=== PATIENT | male | born 1950 | race Caucasian/White ===

== ENCOUNTER → 2020-03-15 14:08 | Outpatient (CLI) | payer MEDICARE, OTHER, SELFPAY ==
[2020-03-16 23:05] LABS: COVID19 Sendout Not Detected (Not Detect)
== END ==
PROVIDERS: Family Provider Internal Medicine; Visit Provider Physician Assistant
DX: Z01.812 Encounter for preprocedural laboratory examination (principal)
CPT/HCPCS: 87635

== ENCOUNTER → 2020-03-18 07:46 | Outpatient (CLI) | payer MEDICARE, BC, SELFPAY ==
--- NOTE | 2020-03-18 | DI.NM.S_ITS ---
PROCEDURE: NM KIARA PERF SPECT R&S PHARM Rest and pharmacological stress myocardial perfusion SPECT with gated imaging and ejection fraction RADIOPHARMACEUTICAL: 12.1 mCi Tc-99m tetrafosmin IV at rest and 26.0 mCi Tc-99m tetrafosmin IV at peak effect of pharmacological stress. [id number] was performed. INDICATIONS: Atherosclerotic heart disease Cardiac murmur TECHNIQUE: Radiopharmaceutical was injected at peak stress test, and also at rest. SPECT images were obtained. SPECT myocardial perfusion images were displayed in short axis, horizontal long axis, and vertical long axis views. Gated images were reviewed using [employer] software. COMPARISON: None. CARDIAC STRESS: A pharmacologic stress test was performed under the supervision of an attending staff, using an infusion of lexiscan 0.4mg IV X1. Hemodynamic data: There is normal blood pressure and heart rate response to pharmacologic stress. Symptoms: The patient denied anginal chest pain. Aminophylline: none EKG: Resting ECG shows sinus rhythm with mild downsloping ST depressions at rest. No significant ST changes with lexiscan. FINDINGS: Raw data: There is good myocardial uptake of radiotracer. No significant motion artifacts. Ojym-lt-yuesp ratio is 0.35 (normal is less than 0.38 for tetrafosmin tracer). Left ventricle function: Gated images demonstrate hypokinesis of the inferolateral wall and lateral wall. No transient ischemic dilation; TID is 1.01 (normal less than 1.3). Left ventricle resting end diastolic volume is 183 mL. Left ventricle stress ejection fraction is 51%; normal range is above 45%. Myocardial perfusion: There is a severe fixed inferolateral wall defect extending to the lateral apex consistent with prior transmural infarct with no ischemia. There is also a mildly intense fixed defect in the inferior wall that is consistent with prior non-transmural infarction with no tunde-infarct ischemia. IMPRESSION: Abnormal nuclear stress test consistent with prior infarction. No ischemia. 1) There is a severe fixed inferolateral wall defect extending to the lateral apex consistent with prior transmural infarct with no ischemia. There is also a mildly intense fixed defect in the inferior wall that is consistent with prior non-transmural infarction with no tunde-infarct ischemia. SSS 17, SRS 16. 2) Enlarged left ventricle (resting EDV 183cc) with low normal systolic function (EF post stress 51%). There is hypokinesis of the inferolateral wall and lateral wall. 3) No ECG evidence of ischemia. 4) No angina during the study. 5) No prior nuclear stress test avaliable for comparison. Dictated by: Carl Breaux MD on 03/18/2020 at 17:31 Approved by: Carl Breaux MD on 03/18/2020 at 17:36
--- NOTE | 2020-03-18 09:36 | DI.ECHO.S_ITS ---
Echocardiogram Report + + :Name: IVETH DEAN Study Date: 03/18/2020 Height: 69 in : :[facility] Weight: 205 lb : : Gender: Male BSA: 2.1 m2 : :: 1950 Age: 69 yrs BP: 144/80 mmHg: :Reason For Study: Atherosclerotic heart disease, murmur : :Ordering Physician: BLANCA, : :VENKAT Performed By: Emilie Cuenca : :Referring: VENKAT RIOS : + + Interpretation Summary The left ventricle is normal in size. The ejection fraction is estimated to be 55-60%. There is posterolateral wall severe hypokinesis. There is inferior wall mild hypokinesis. Compared to the prior exam, the left ventricular wall motion has not changed. There has been no significant change since the previous exam. The right ventricle is normal in size and function. No significant valvular pathology seen. Mild atherosclerotic plaque(s) in the aortic arch. Procedure: A two-dimensional transthoracic echocardiogram with color flow and Doppler was performed. The study quality was technically adequate. Comparison is made with the echocardiogram of 01/23/2014. The patient was in sinus bradycardia with heart rates between 47-52 bpm during the exam. Left Ventricle: The left ventricle is normal in size. The estimated left ventricular end diastolic volume is 145 ml. There is mild asymmetric left ventricular hypertrophy. There is no echo evidence for significant left ventricular outflow tract obstruction. There is no thrombus. The ejection fraction is estimated to be 55-60%. There has been no significant change since the previous exam. There is posterolateral wall severe hypokinesis. There is inferior wall mild hypokinesis. Compared to the prior exam, the left ventricular wall motion has not changed. MV E/A: 1.8 Med Peak E' Devin: 7.8 cm/sec E/E' med: 9.5. Right Ventricle: The right ventricle is normal in size and function. Atria: The left atrium is moderately dilated. The left atrium has remained unchanged in size since the prior echo exam. Right atrial size is normal. There is no Doppler evidence for an interatrial shunt. Mitral Valve: The mitral valve leaflets appear mildly thickened, but open well. There is mild mitral regurgitation. Aortic Valve: The aortic valve is trileaflet. The aortic valve opens well. There is no aortic valve stenosis. No aortic regurgitation is present. Tricuspid Valve: The tricuspid valve is normal in structure but is abnormal in function. There is trace tricuspid regurgitation. Pulmonary artery pressures cannot be estimated because of the lack of a measurable TR jet velocity but the IVC suggests a CVP of around 3 mmHg. Pulmonic Valve: The pulmonic valve is not well seen, but is grossly normal. There is no pulmonic valvular regurgitation. Great Vessels: The aortic root is normal size. The ascending aorta is at the upper limits of normal in size. Mild atherosclerotic plaque(s) in the aortic arch. The IVC is of normal diameter and collapses greater than 50% with a sniff. This suggests a low right atrial pressure of 3 mm Hg. Pericardium/ Pleura There is no pericardial effusion. There is no pleural effusion. MMode/2D Measurements & Calculations LVIDd: 5.7 cm LVOT diam: 2.2 cm LVIDs: 4.5 cm Ao root diam: 3.4 cm FS: 19.8 % asc Aorta Diam: 3.7 cm EPSS: 0.63 cm Ao Arch Diam (Prox Trans): 3.1 cm IVSd: 1.4 cm LVPWd: 0.63 cm LV garsia. diameter/BSA (cm/m^2): 2.7 LV sys. diameter/BSA (cm/m^2): 2.2 LA A2 area: 28.0 cm2 RA long axis: 6.1 cm LA A4 area: 27.6 cm2 RA area: 21.6 cm2 LA length (vol): 6.7 cm RA vol: 64.9 ml LA vol: 97.7 ml RA : 31.1 ml/m2 LA vol index: 46.8 ml/m2 IVC diam: 1.4 cm RVD1 (basal): 3.4 cm TAPSE: 2.5 cm Doppler Measurements & Calculations Ao V2 max: 168.7 cm/sec LVOT Max Devin: 134.6 cm/sec Ao V2 mean: 113.4 cm/sec LV V1 max P.2 mmHg Ao max P.4 mmHg LV V1 VTI: 28.3 cm Ao mean P.9 mmHg NISH(I,D): 2.8 cm2 Ao V2 VTI: 37.1 cm NISH(V,D): 3.0 cm2 sev ratio: 0.76 NISH indexed to BSA (cm^2/m^2): 1.4 MV E max devin: 74.6 cm/sec PA V2 max: 83.3 cm/sec MV A max devin: 41.4 cm/sec PA V2 mean: 56.6 cm/sec MV E/A: 1.8 PA mean P.5 mmHg Med Peak E' Devin: 7.8 cm/sec PA pr(Accel): 8.8 mmHg E/E' med: 9.5 Lat Peak E' Devin: 8.9 cm/sec E/E' lat: 8.4 E/e' average: 9.0 MV dec time: 0.22 sec SV(LVOT): 105.5 ml Reading Physician:03:36 PM
--- NOTE | 2020-03-18 11:33 | PM.TREADMILL ---
Cardiac Stress Test Report Referral & Results Date Patient Seen: 03/18/20 Time Patient Seen: 11:34 Requesting provider: Daniel Crawford Indication: atherosclerotic heart disease Rest ECG: sinus bradycardia Procedure Note: After Lexiscan injection had minimal dyspnea; no chest discomfort No significant ST changes on ECG after Lexiscan injection; No ectopy No reversal agents needed Nuclear images pending Impression: Normal Lexiscan nuclear stress test Please note: Actual ECG tracings can be found in the PACS system.
== END ==
PROVIDERS: Family Provider Internal Medicine; PCP Internal Medicine; Referring Provider Internal Medicine Cardiovascular Disease; Visit Provider Internal Medicine Cardiovascular Disease
DX: I34.0 Nonrheumatic mitral (valve) insufficiency (principal); I70.0 Atherosclerosis of aorta; I25.10 Atherosclerotic heart disease of native coronary artery without angina pectoris; R01.1 Cardiac murmur, unspecified
CPT/HCPCS: 78452; 93306; A9502; J2785

== ENCOUNTER → 2024-04-25 08:53 | Outpatient (CLI) | payer MEDICARE, BC, SELFPAY ==
--- NOTE | 2024-04-25 08:55 | DI.NM.S_ITS ---
PROCEDURE: NM KIARA PERF SPECT R&S PHARM Rest and pharmacological stress myocardial perfusion SPECT with gated imaging and ejection fraction RADIOPHARMACEUTICAL: 11.4 mCi Tc-99m tetrafosmin IV at rest and 25.8 mCi Tc-99m tetrafosmin IV at peak effect of pharmacological stress. [id number] was performed. INDICATIONS: A TECHNIQUE: Radiopharmaceutical was injected at peak stress test, and also at rest. SPECT images were obtained. SPECT myocardial perfusion images were displayed in short axis, horizontal long axis, and vertical long axis views. Gated images were reviewed using [employer] software. COMPARISON: None. CARDIAC STRESS: A pharmacologic stress test was performed under the supervision of an attending staff, using an infusion of lexiscan 0.4mg IV X1. Hemodynamic data: There is normal blood pressure and heart rate response to pharmacologic stress. Symptoms: The patient denied anginal chest pain. Aminophylline: none EKG: No diagnostic changes of ischemia; rare PACs and rare PVCs. FINDINGS: Raw data: There is good myocardial uptake of radiotracer. No significant motion artifacts. Left ventricle function: Gated images demonstrate normal left ventricular wall thickening. No segmental wall motion abnormalities. No transient ischemic dilation; TID is 1.37 (normal less than 1.3). Left ventricle resting end diastolic volume is 182 mL. Left ventricle stress ejection fraction is 56%; normal range is above 45%. Myocardial perfusion: There is a severe fixed defect in the inferior wall and inferolateral wall consistent with prior infarction and no ischemia. SSS 16. SRS 18. IMPRESSION: Abnormal pharm nuclear stress test consistent with prior infarction. No ischemia. 1) There is a severe fixed defect in the inferior wall and inferolateral wall consistent with prior infarction and no ischemia. SSS 16. SRS 18. 2) Enlarged left ventricle (resting EDV 182cc) with normal systolic function (EF post stress 56%). No wall motion abnormalities noted. 3) No diagnostic ST changes with lexiscan. 4) No angina during the study. 5) Compared to the nuclear stress test 03/18/2020, no significant change. Dictated by: Carl Breaux MD on 04/25/2024 at 16:48 Approved by: Carl Breaux MD on 04/25/2024 at 16:52
== END ==
PROVIDERS: Family Provider Internal Medicine; PCP Internal Medicine; Referring Provider Nurse Practitioner; Visit Provider Nurse Practitioner
DX: I25.10 Atherosclerotic heart disease of native coronary artery without angina pectoris (principal); R94.39 Abnormal result of other cardiovascular function study; Z95.5 Presence of coronary angioplasty implant and graft
CPT/HCPCS: 78452; 93017; A9502; J2785